=== PATIENT | female | born 1995 | race Two or more races ===

== ENCOUNTER 2021-12-10 16:13 | Emergency (ER) | payer OTHER ==
[2021-12-10 16:31] VITALS: BP 153/98
--- NOTE | 2021-12-10 16:57 | ED Physician Documentation ---
PD HPI FEMALE - Stated complaint Stated Complaint: FEMALE - Chief complaint Chief Complaint: Abd Pain - History obtained from History obtained from: Patient - History of Present Illness Timing - onset: How many days ago (4) Timing - duration: Days (4) Timing - details: Gradual onset, Now resolved Associated symptoms: Dysuria, Urinary frequency, Hematuria Contributing factors: No: Similar symptoms before: Diagnosis (UTI) Recently seen: Other (prescribed monurol for hemorrhagic cystitis) - Additional information Additional information: 26-year-old Gretchen because he has developed symptoms of urinary frequency urgency dysuria and hematuria about 4 days ago. She was eventually prescribed some Monurol and her symptoms have since resolved. She did get a hold of her insurance company and it only and they have okayed an emergency department visit. She got the paperwork today and she has come to the emergency department she states her symptoms are mostly resolved with the exception of slight pressure in her bladder. She has no more urgency dysuria or hematuria. She did vomit shortly after taking her dose of Monurol Review of Systems Constitutional: reports: Chills. denies: Fever Eyes: denies: Decreased vision Ears: denies: Ear pain Nose: denies: Congestion Throat: denies: Sore throat Respiratory: denies: Cough GI: reports: Vomiting. denies: Constipation, Diarrhea : reports: Dysuria (resolved), Frequency (resolved), Hematuria (resolved) PD PAST MEDICAL HISTORY - Allergies Allergies/Adverse Reactions: Allergies Allergy/AdvReac Type Severity Reaction Status Date / Time amoxicillin Allergy Rash Verified 12/10/21 16:32 azithromycin [From Zithromax] Allergy Rash Verified 12/10/21 16:32 PD ED PE NORMAL - Vitals Vital signs reviewed: Yes (hypretensive ) - General General: Alert and oriented X 3, No acute distress, Well developed/nourished - HEENT HEENT: Atraumatic, PERRL, EOMI - Respiratory Respiratory: No respiratory distress - Back Back: No CVA TTP, No spinal TTP - Derm Derm: Normal color, Warm and dry, No rash - Extremities Extremities: No deformity, No edema - Neuro Neuro: Alert and oriented X 3, monkey keeper 2-12 intact, No motor deficit, No sensory deficit, Normal speech Eye Opening: Spontaneous Motor: Obeys Commands Verbal: Oriented GCS Score: 15 - Psych Psych: Normal mood, Normal affect Results - Vitals Vitals: Vital Signs - 24 hr 12/10/21 16:23 Temperature 36.1 C L Heart Rate 91 Respiratory 14 Rate Blood Pressure 153/98 H O2 Saturation 100 Oxygen O2 Source Room air - Labs Labs: Laboratory Tests 12/10/21 16:34 Urine Color YELLOW Urine Clarity CLEAR Urine pH 7.5 Ur Specific [place] 1.010 Urine Protein NEGATIVE Urine Glucose (UA) NEGATIVE Urine Ketones NEGATIVE Urine Occult Blood NEGATIVE Urine Nitrite NEGATIVE Urine Bilirubin NEGATIVE Urine Urobilinogen 0.2 (NORMAL) Ur Leukocyte Esterase NEGATIVE Ur Microscopic Review NOT INDICATED Urine Culture Comments NOT INDICATED Urine HCG, Qual NEGATIVE PD MEDICAL DECISION MAKING - ED course Complexity details: reviewed results, re-evaluated patient, considered differential, d/w patient, d/w family ED course: 26-year-old Gretchen Springer has been treated for urinary tract infection and then asked by her insurance company to come to the emergency department for ev aluation. She is currently without symptoms and has a negative urinalysis. She appears to have been successful at her treatment. I have suggested to her to continue to increase her fluid intake to rinse her bladder out and to follow-up for new symptoms Departure - Departure Disposition: Home, Self Care Clinical Impression: Cystitis Condition: Stable Instructions: ED UTI Cystitis Female Follow-Up: Brittney Orozco ARNP [Provider Admit Priv/Credential] - Comments: Racheal, today it looks like your urinary tract infection has resolved. My recommendation is to continue to drink a bit of extra fluid to continue to rinse the bladder. If you develop symptoms again follow-up with the recommended doctor.
[2021-12-10 16:59] LABS: BILIRUBIN,URINE NEGATIVE (NEGATIVE); GLUCOSE, URINE (UA) NEGATIVE (NEGATIVE); KETONES,URINE (UA) NEGATIVE (NEGATIVE); LEUKOCYTE ESTERASE, URINE NEGATIVE (NEGATIVE); NITRITE,URINE NEGATIVE (NEGATIVE); OCCULT BLOOD,URINE NEGATIVE (NEGATIVE); PH,URINE 7.5 PH (5.0-7.5); PROTEIN,URINE NEGATIVE (NEGATIVE); UROBILINOGEN,URINE 0.2 (NORMAL) E.U./dL (NORMAL)
[2021-12-10 17:03] LABS: CLARITY,URINE CLEAR (CLEAR); HCG UR QUAL NEGATIVE
== END 2021-12-10 17:40 | disposition home or self-care (01) ==
LOC: ED 16:13
DX: N30.90 Cystitis, unspecified without hematuria (principal)
CPT/HCPCS: 81001; 81003; 81025; 87086; 99281; 99283